=== PATIENT | female | born 1995 | race Two or more races ===

== ENCOUNTER 2025-05-26 08:45 | Emergency (ER) | payer OTHER ==
[~2025-05-26] VITALS: Ht 167.6 cm; Wt 74.4 kg
[~2025-05-26 08:45] MED LIST: SYNTHROID88 MCG
[2025-05-26 09:55] LABS: URINE APPEARANCE Cloudy; URINE BILIRRUBIN Negative (NEGATIVE); URINE BLOOD Small; URINE COLOR Yellow; URINE GLUCOSE Negative (NEGATIVE); URINE KETONE Negative (NEGATIVE); URINE LEUKOCYTE Large; URINE NITRATE Negative; URINE PROTEIN Trace (NEGATIVE); URINE UROBILINOGEN 1.0 E.U./dl
[2025-05-26 09:59] LABS: URINE BACTERIA 546.0 uL (0.0-1933); URINE EPITHELIAL CELLS 2.7 uL (0.0-38.8); URINE RBC 30.2 uL (0.0-20.8)
[2025-05-26 10:34] LABS: URINE CAST 0.00 uL (0.0-1.40); URINE WBC > 5548.3 uL (0.0-23.2)
== END 2025-05-26 11:52 | disposition home or self-care (01) ==
LOC: ER 08:46
PROVIDERS: Emergency Medicine
DX: N30.80 Other cystitis without hematuria (principal)